=== PATIENT | female | born 1945 | race Two or more races ===

== ENCOUNTER 2020-05-05 10:59 | Outpatient (CLI) | payer OTHER ==
[~2020-05-05 10:59] MED LIST: COZAAR25 MG PO; METROPOLOL PO; PANTOPRAZOLE SO20 MG PO; ZOCOR PO
== END 2020-05-05 11:06 | disposition home or self-care (01) ==
LOC: LAB 10:59
PROVIDERS: ATTEND Orthopaedic Surgery
DX: E21.2 Other hyperparathyroidism (principal); M81.8 Other osteoporosis without current pathological fracture; E56.1 Deficiency of vitamin K

== ENCOUNTER 2022-05-20 10:26 | Outpatient (CLI) | payer OTHER | END 2022-05-20 10:28 | disposition home or self-care (01) | LOC: LAB 10:26 | PROVIDERS: ATTEND Orthopaedic Surgery | DX: E56.1 Deficiency of vitamin K (principal) ==

== ENCOUNTER 2024-06-04 09:57 | Outpatient (CLI) | payer OTHER | END 2024-06-04 10:00 | disposition home or self-care (01) | LOC: LAB 09:57 | PROVIDERS: ATTEND Orthopaedic Surgery | DX: E56.1 Deficiency of vitamin K (principal) ==